=== PATIENT | female | born 1960 | race Caucasian/White ===

== ENCOUNTER 2017-12-19 19:48 | Emergency (ER) | END 2017-12-19 21:37 | disposition home or self-care (01) ==

== ENCOUNTER 2018-10-29 20:43 | Emergency (ER) | payer MEDICARE, OTHER ==
[~2018-10-29] VITALS: Ht 157.5 cm; Wt 74.0 kg
[~2018-10-29 20:43] MED LIST: IBUP-1542 PO
[2018-10-29 20:55] VITALS: Ht 157.5 cm; Wt 74.0 kg
--- NOTE | 2018-10-29 22:01 | ERD ---
ER Documentation Chief Complaint Chief Complaint LEFT KNEE PAIN WITH REPORTS OF KNEE LOCKING UP HPI 58-year-old female, previously healthy, presents to the emergency department, complaining of left knee pain associated with a locking up sensation for 5 days. No trauma, no medications taken at this time. ROS All systems reviewed and are negative except as per history of present illness. Medications Home Meds Active Scripts Hydrocodone/Acetaminophen ([place] 5-325 Tablet) 1 Each Tablet, 1 TAB PO BID PRN for PAIN, #10 TAB Prov:FRANKI BERUMEN MD 10/29/18 Ibuprofen* (Motrin*) 400 Mg Tab, 400 MG PO Q8, #20 TAB Prov:FRANKI BERUMEN MD 10/29/18 Ibuprofen* (Motrin*) 600 Mg Tab, 600 MG PO Q6H PRN for PAIN AND OR ELEVATED TEMP, #30 TAB Prov:YIN HEADLEY NP 12/19/17 Reported Medications [none] Unknown Strength No Conflict Check 12/19/17 Allergies Allergies: Coded Allergies: No Known Allergy (Unverified , 12/19/17) PMhx/Soc Medical and Surgical Hx: pt denies Medical Hx, pt denies Surgical Hx Hx Alcohol Use: No Hx Substance Use: No Hx Tobacco Use: No Smoking Status: Never smoker FmHx Family History: No diabetes, No coronary disease Physical Exam Vitals Vital Signs Date Temp Pulse Resp B/P (MAP) Pulse Ox O2 O2 Flow FiO2 Time Delivery Rate 10/29/18 97.5 90 18 150/83 100 20:55 (105) Physical Exam Const: No acute distress Head: Atraumatic Eyes: Normal Conjunctiva ENT: Normal External Ears, Nose and Mouth. Neck: Full range of motion. No meningismus. Resp: Clear to auscultation bilaterally Cardio: Regular rate and rhythm, no murmurs Abd: Soft, non tender, non distended. Normal bowel sounds Skin: No petechiae or rashes Back: No midline or flank tenderness Ext: Left knee: Peripatellar effusion, no erythema, no warmth, full passive range of motion. Distal neurovascular exam intact. Neur: Awake and alert Psych: Normal Mood and Affect Procedures/MDM Acute left knee pain: no red flags. Differential diagnosis include but not limited to: Knee contusion, meniscus injury, tendon/ligament injury, arthritis; low suspicion for fracture, dislocation, septic arthritis. Neurovascular exam grossly intact. no clinical findings suggestive of acute infectious process, no acute deformity, no edema, no rashes. Physical examination and clinical presentation consistent most likely with derangement of the left knee with mild prepatellar effusion. During the ED course the patient received treatment with left knee immobilizer and crutches presenting overall improvement of the symptoms. Splint evaluation: Type: Knee immobilizer Location: Left lower extremity Position: good alignment in anatomical position Neurovascular intact The patient was told that elevating the injured part will help reduce pain and swelling. Ice packs can decrease pain and promote healing when applied in the first two days after an injury. The pack should be dry on the outside. Apply it for half an hour three to four times a day. Results and clinical impression discussed with the patient who agrees with management. The patient is stable to be treated outpatient and will be discharged home with recommendations for ice, rest and partial immobilization. NSAIDs 3 times daily for 5 days and close monitoring. The patient was instructed to follow up with the primary care provider in the next 48h. If symptoms persist, worsen or new symptoms develop, then patient should return to the ED immediately. Instructions explained and given to patient with acknowledgment and demonstrated understanding. Disclaimer: Inadvertent spelling and grammatical errors are likely due to EHR/dictation software use and do not reflect on the overall quality of patient care. Also, please note that the electronic time recorded on this note does not necessarily reflect the actual time of the patient encounter. Departure Diagnosis: Primary Impression: Derangement of knee, left Additional Impression: Prepatellar effusion of left knee Condition: Stable FRANKI BERUMEN MD Oct 29, 2018 22:01
[2018-10-29] MEDS ORDERED: HYDR-4011 PO (22:46)
[2018-10-29] MEDS ORDERED: IBUP-1561 PO (22:46)
[2018-10-29 23:58] VITALS: BP 140/80; PULSE 78; RESP 16
== END 2018-10-29 23:58 | disposition home or self-care (01) ==
LOC: FTE 20:43
DX: M23.92 Unspecified internal derangement of left knee (principal); M25.462 Effusion, left knee